=== PATIENT | male | born 1975 | race Caucasian/White ===

== ENCOUNTER 2021-02-22 12:21 | Emergency (ER) | payer OTHER ==
[~2021-02-22] VITALS: Ht 182.9 cm; Wt 140.6 kg
[2021-02-22] MEDS ORDERED: IBUP600 PO (15:35)
[2021-02-22] MEDS ORDERED: CEPH500 PO (15:35)
== END 2021-02-22 16:00 | disposition home or self-care (01) ==
LOC: ER 12:21
DX: L03.116 Cellulitis of left lower limb (principal); L03.115 Cellulitis of right lower limb; F17.200 Nicotine dependence, unspecified, uncomplicated
CPT/HCPCS: 96372; 99282-25; J1885